=== PATIENT | female | born 1975 | race Caucasian/White ===

== ENCOUNTER 2018-02-14 13:59 | Emergency (ER) | payer OTHER ==
[~2018-02-14] VITALS: Ht 160 cm; Wt 143.3 kg
[2018-02-14 14:05] VITALS: BP_SYST 127
[2018-02-14 14:48] LABS: BILIRUBIN,URINE 2+ (NEGATIVE); BLOOD, URINE NEGATIVE (NEGATIVE); CLARITY/URINE HAZY (CLEAR); COLOR,URINE AMBER (YELLOW); GLUCOSE,URINE NEGATIVE (NEGATIVE); KETONES,URINE TRACE (NEGATIVE); LEUKOCYTE ESTERASE ,URINE TRACE (NEGATIVE); NITRITE, URINE POSITIVE (NEGATIVE); PH,URINE 5.5 (5.0-8.0); PROTEIN URINE 1+ (NEGATIVE)
[2018-02-14 14:52] LABS: UROBILINOGEN,URINE >=8 (0.2-1.0)
[2018-02-14 15:02] LABS: LYMPHOCYTES # (AUTO) 1.1 K/uL (1.0-5.5); MEAN CORPUSCULAR HEMOGLOBIN 32 pg (27-31); MEAN CORPUSCULAR HGB CONC 34 % (32-36); MEAN CORPUSCULAR VOLUME 94 fL (79.0-98.0); MONOCYTES # (AUTO) 0.6 K/uL (0.0-1.0); RED CELL DISTRIBUTION WIDTH 13.8 % (9.0-15.0)
[2018-02-14 15:06] LABS: RBC,URINE 0-3 /HPF (0-3)
[2018-02-14 15:07] LABS: BACTERIA,URINE MODERATE /HPF (None Seen)
[2018-02-14 15:08] LABS: MUCUS,URINE None Seen /LPF (None Seen)
[2018-02-14 15:18] LABS: CALCIUM 9.8 mg/dL (8.4-11.0); CREATININE 0.64 mg/dL (0.55-1.30); HEMATOCRIT 42.8 % (36-48); HEMOGLOBIN 14.4 g/dL (12.0-16.0); POTASSIUM 3.1 mmol/L (3.5-5.1); RED BLOOD CELL COUNT(AUTO) 4.57 MIL/uL (4.2-6.2); WHITE BLOOD COUNT (AUTO) 7.8 K/uL (4.8-10.8)
[2018-02-14 15:19] LABS: BASOPHILS # (AUTO) 0.1 K/uL (0.0-0.2); BASOPHILS % (AUTO) 0.7 % (0.0-2.0); EOSINOPHILS % (AUTO) 0.4 % (0.0-4.0); LYMPHOCYTES % (AUTO) 14.2 % (20.5-51.5); MONOCYTES % (AUTO) 8.2 % (1.7-9.3); NEUTROPHILS % (AUTO) 76.5 % (40.0-70.0); PLATELET COUNT (AUTO) 125 K/uL (130-430)
[2018-02-14 15:24] LABS: ALBUMIN 2.9 g/dL (3.4-4.8); TOTAL BILIRUBIN 2.1 mg/dL (0.0-1.0)
[2018-02-14] MEDS: KETOROLAC TROMETHAMINE 30 MG VIAL IVP ONE (15:50)
[2018-02-14] MEDS: NACL 0.9% 1,000 ML IV ONE (15:50)
[2018-02-14] MEDS: cefTRIAXone 1 GM IVPB PREMIX 50 ML IV ONE (15:58)
[2018-02-14 16:45] VITALS: BP_SYST 121
== END 2018-02-14 16:45 | disposition home or self-care (01) ==
LOC: SED 13:59
DX: N39.0 Urinary tract infection, site not specified (principal); E66.01 Morbid (severe) obesity due to excess calories; R19.7 Diarrhea, unspecified; I10 Essential (primary) hypertension; Z68.43 Body mass index [BMI] 50.0-59.9, adult
CPT/HCPCS: 36415; 80053; 81000; 81025; 83605; 85025; 87086; 96361; 96365; 96375; 99284; J0696; J1885; J7030